=== PATIENT | male | born 1985 | race Caucasian/White ===

== ENCOUNTER → 2021-07-10 11:12 | Outpatient (CLI) | payer BC, SELFPAY ==
--- NOTE | ~2021-07-10 | US_ITS ---
EXAMINATION: US soft tissue chest EXAM DATE: 07/10/2021 11:45 INDICATION: R22.2 - Localized swelling, mass and lump, trunk. Abnormality since December. TECHNIQUE: Multiple grayscale and Doppler images of the left lateral chest wall region were obtained (by a technologist who performed the scan) and subsequently reviewed. There is no prior study for co mparison. FINDINGS: Scanning in the left lateral chest wall area of concern demonstrates a focal hypoechoic region either within the musculature or between layers of muscle, region measuring 2.4 x 1.9 x 0.9 cm. Color flow confirmed this is solid region. No abscess. IMPRESSION: Nonspecific hypoechoic soft tissue mass like region, could be intramuscular. Could be sc arring, phlegmon, benign or malignant mass. Recommend CT chest with contrast. Reviewed, dictated and finalized at location A. IMPRESSION: Nonspecific hypoechoic soft tissue mass like region, could be intra muscular. Could be scarring, phlegmon, benign or malignant mass. Recommend CT chest with contrast.
== END ==
PROVIDERS: PCP Family Medicine; Visit Provider Family Medicine
DX: R22.2 Localized swelling, mass and lump, trunk (principal)
CPT/HCPCS: 76604

== ENCOUNTER 2021-07-15 06:37 | Outpatient (CLI) | payer BC, SELFPAY ==
--- NOTE | ~2021-07-15 | CT_ITS ---
EXAMINATION: CT soft tissue neck chest w EXAM DATE: 07/15/2021 07:15 INDICATION: R22.2 - Localized swelling, mass and lump, trunk. TECHNIQUE: Spiral CT of the neck and chest was performed following intravenous injection of 75 mL Omn ipaque 350. Axial, coronal and sagittal images of the neck were reviewed. Axial, coronal and sagitt al images of the chest were reviewed. Coronal maximum intensity pixel images of chest reviewed. The dose-length product (DLP) for this examination was 894.45 mGy-cm. The exposure was tailored accordi ng to patient size (auto mA exposure control), and iterative reconstruction (ASIR) was used as additi onal dose reduction technique. Correlation is made to ultrasound 07/10/2021. FINDINGS: NECK: The thyroid gland is unremarkable. The submandibular and parotid glands are symmetric. Ther e is no cervical lymphadenopathy. There are no masses identified. The airway is unremarkable. P arapharyngeal and pre-glottic fat planes are preserved. The opacified vasculature is patent. The orbits are unremarkable. Visualized sinuses and mastoid air cells are well aerated. There is cerv ical spondylosis. CHEST: An additional wide [id number] set of axial images were created. This demonstrates lipoma al maia the left lateral aspect of the thoracic wall mid axillary line, appears to be between layers of t he intercostal muscles. This measures up to 6 cm in diameter by 2 cm in thickness. This likely correl ates to the ultrasound finding. The lungs are clear. There are no pleural or pericardial effusions. Tracheobronchial tree is rae nt. There is no mediastinal, hilar or axillary lymphadenopathy. There is no pneumothorax. Heart normal in size. No evidence of coronary arterial calcification. Right liver lobe mass demonstrati ng incomplete peripheral nodular enhancement, a hemangioma measuring up to 2.4 cm. There is thoracic spondylosis without osteoblastic or osteolytic lesions identified. IMPRESSION: 1. Left lateral thoracic wall lipoma. 2. Right liver lobe hemangioma. 3. Unremarkable neck. Reviewed, dictated and finalized at location B.
== END 2021-07-15 06:38 | disposition home or self-care (01) ==
PROVIDERS: PCP Family Medicine; Visit Provider Family Medicine
DX: R22.2 Localized swelling, mass and lump, trunk (principal)
CPT/HCPCS: 70491; 71260; Q9967